=== PATIENT | female | born 1990 | race Caucasian/White ===

== ENCOUNTER 2017-06-24 07:07 | Emergency (ER) | payer OTHER ==
[2017-06-24 07:21] VITALS: BP 109/62
[2017-06-24] MEDS ORDERED: Rabies VIRUS VACCINE, HDCV* 2.5 UNIT/ML 1 ML IM ONE ×2 (07:24→07:43)
--- NOTE | 2017-06-24 14:09 | UC ---
Silas Orellana Angela, scribed for Mara Camarillo DO on 06/24/17 at 0737 . General HPI - HPI Summary HPI Summary: 27 y/o female presents to [facility] for a third vaccine post possible rabies exposure. Pt reports she awoke 3 days ago and with a bat in her room. [facility] and was advised to get a rabies shot. Pt has been and is currently asymptomatic, she denies fever, chills, abd pain, SOB, chest pain, nausea, vomiting, rashes, headache, cough. - History of Current Complaint Chief Complaint: UCGeneralIllness Stated Complaint: RABIES EXPOSURE Time Seen by Provider: 06/24/17 07:24 Hx Obtained From: Patient Hx Last Menstrual Period: 06/19/17 Current Severity: None Pain Intensity: 0 - On a scale from 0-10 Associated Signs & Symptoms: Negative: Abdominal Pain, Cough, Chest Pain, Diarrhea, Diaphoresis, Fever, Headache, Nausea, SOB, Vomiting, Wheezing, Weakness - Allergy/Home Medications Allergies/Adverse Reactions: Allergies Allergy/AdvReac Type Severity Reaction Status Date / Time No Known Allergies Allergy Verified 06/24/17 07:21 Home Medications: Home Medications Natalizumab* [Tysabri*] 15 ml IV MONTHLY 06/24/17 [History Confirmed 06/24/17] PMH/Surg Hx/FS Hx/Imm Hx - Additional Past Medical History Additional PMH: MS Other Neurological History: Multiple Sclerosis - Surgical History Surgical History: Yes Surgery Procedure, Year, and Place: t&a as a child - Family History Known Family History: Negative: Hypertension, Diabetes - Social History Alcohol Use: Weekly Alcohol Amount: 1x Wweekly Substance Use Type: None Smoking Status (MU): Never Smoked Tobacco Review of Systems Constitutional: Negative Skin: Negative ENT: Negative Respiratory: Negative Cardiovascular: Negative Gastrointestinal: Negative Neurological: Negative All Other Systems Reviewed And Are Negative: Yes Physical Exam Triage Information Reviewed: Yes Appearance: Well-Appearing, No Pain Distress, Well-Nourished Vital Signs: Initial Vital Signs Temp 98.7 F 06/24/17 07:08 Pulse 68 06/24/17 07:08 Resp 16 06/24/17 07:08 BP 109/62 06/24/17 07:08 Pulse Ox 100 06/24/17 07:08 Vital Signs Reviewed: Yes Eyes: Positive: Conjunctiva Clear. Negative: Discharge ENT: Positive: Hearing grossly normal. Negative: Muffled/hoarse voice - Normal voice Neck exam: Normal Neck: Positive: Supple Respiratory: Positive: Lungs clear, Normal breath sounds, No respiratory distress, No accessory muscle use Cardiovascular: Positive: RRR, No Murmur Neurological: Positive: Alert, Muscle Tone Normal Psychological Exam: Normal Psychological: Positive: Age Appropriate Behavior Skin Exam: Normal, Other - Warm, Dry, Normal color. Course/Dx - Differential Dx - Multi-Symptom Provider Diagnoses: Rabies Vaccine Discharge - Discharge Plan Condition: Stable Disposition: HOME Patient Education Materials: Rabies Vaccine (ED) Referrals: Galo Mills MD [Primary Care Provider] - If Needed The documentation as recorded by the Silas harris Angela accurately reflects the service I personally performed and the decisions made by Rabia becerra Michelle A, DO.
== END 2017-06-24 07:58 | disposition home or self-care (01) ==
LOC: UCEAST 07:07
DX: Z20.3 Contact with and (suspected) exposure to rabies (principal); G35 Multiple sclerosis
CPT/HCPCS: 90471; 99211; G0463